=== PATIENT | female | born 1985 | race African-American/Black ===

== ENCOUNTER 2021-11-03 13:09 | Emergency (ER) | payer OTHER ==
[2021-11-03 14:13] VITALS: BP 100/76; PULSE 103; TEMP 98.7; BMI 42.5
[2021-11-03] MEDS ORDERED: IBUPROFEN 600 MG TABLET (FP) PO ONE ×2 (14:53→15:14)
== END 2021-11-03 15:37 | disposition home or self-care (01) ==
LOC: JER 13:09
DX: U07.1 COVID-19 (principal); R05.1 Acute cough
CPT/HCPCS: 71046-TC-FY; 87804; 87807; 99283-25; C9803; U0003; U0005